=== PATIENT | female | born 1935 | race Caucasian/White ===

== ENCOUNTER 2016-06-05 09:16 | Day surgery (SDC) | payer OTHER, MEDICARE ==
[2016-06-02 13:53] VITALS: BMI 35.3
[2016-06-05] MEDS ORDERED: PROPOFOL 20 ML ONE ×2 (10:24)
[2016-06-05 11:49] VITALS: TEMP 97.6
[2016-06-05 11:50] VITALS: PULSE 77
[2016-06-05 12:42] VITALS: BP 111/68
== END 2016-06-05 12:42 | disposition home or self-care (01) ==
LOC: JASU-ENDO 09:16
PROVIDERS: ATTEND Internal Medicine Gastroenterology
PROC: 0DJD8ZZ Inspection of Lower Intestinal Tract, Via Natural or Artificial Opening Endoscopic (ICD-10-PCS; principal; 2016-06-05 10:00)
DX: Z86.010 Personal history of colon polyps (principal); K57.30 Diverticulosis of large intestine without perforation or abscess without bleeding; K64.8 Other hemorrhoids